=== PATIENT | female | born 1970 | race Two or more races ===

== ENCOUNTER → 2017-06-08 | Outpatient (CLI) | payer BC ==
--- NOTE | ~2017-06-08 | MY26 ---
[facility] A Service of [facility] / [facility] RADIOLOGY TEXT RESULTS PATIENT: VLADIMIR SMITH LOCATION: [facility] : 72 UNIT #: [id number] AGE: [address]: Guille Billings MD SEX: F ORDER DR: [id number] [place], [place] [address] [id number] O MR#: [id number] Acc #: [id number] NAME: VLADIMIR SMITH : 1970 SEX: F STUDY DATE/TIME: 06/08/2017 10:20 UNIT: [facility] ROOM: STUDY DESCRIPTION: MY [facility] DIAGNOSTIC W/ CAD BILAT Attending Physician: Guille Billings M.D. Referring Physician: Guille Billings M.D. Ordering Physician: Guille Billings M.D. Primary Care Physician: Guille Billings M.D. MEDICAL IMAGING REPORT This report is preliminary unless electronic signature is present EXAM Bilateral digital diagnostic mammogram INDICATIONS Palpable lump in the left breast noticed 4 days ago. PROCEDURE Bilateral CC and MLO views and a true lateral view of the left breast obtained on digital mammography unit. FDA-approved CAD device utilized. COMPARISON 05/08/2016 FINDINGS The breasts are dense. This lowers the sensitivity of mammography. No new dominant mass or suspicious calcification. Concurrently performed left breast ultrasound shows a complex cystic mass with somewhat thick, irregular cisneros in the left breast at the 2 o'clock position, 6 cm from the nipple. It measures 1.4 x 1.1 x 1 cm. IMPRESSION Complex cystic lesion in the left breast as detailed above. It has somewhat thick, irregular cisneros. Recommend ultrasound-guided biopsy. Patients over the age of 40 are entered into a reminder system with target due date for the next mammogram. A result letter will also be sent to the patient. BIRADS: 4 Suspicious Abnormality; Biopsy Should Be Considered [facility] RADIOLOGY TEXT RESULTS PATIENT: VLADIMIR SMITH LOCATION: [facility] : 72 UNIT #: [id number] AGE: [address]: Guille Billings MD SEX: F ORDER DR: Dictated by... Dakota Hager M.D. THIS IS AN ELECTRONICALLY VERIFIED REPORT Dakota Hager M.D. at 06/09/2017 7:12 AM EED/sary TD: 06/08/2017 20:33 JOB #: [id number] MEDICAL IMAGING REPORT Page 1 of 1 COPY
--- NOTE | ~2017-06-08 | US24 ---
[facility] A Service [facility] RADIOLOGY TEXT RESULTS PATIENT: VLADIMIR SMITH LOCATION: [facility] : 72 UNIT #: [id number] AGE: [address]: Guille Billings MD SEX: F ORDER DR: [id number] [place], [place] [address] [id number] O MR#: [id number] Acc #: [id number] NAME: VLADIMIR SMITH : 1970 SEX: F STUDY DATE/TIME: 06/08/2017 10:40 UNIT: [facility] ROOM: STUDY DESCRIPTION: US Breast Unilateral Attending Physician: Guille Billings M.D. Referring Physician: Guille Billings M.D. Ordering Physician: Guille Billings M.D. Primary Care Physician: Guille Billings M.D. MEDICAL IMAGING REPORT This report is preliminary unless electronic signature is present EXAM Left breast ultrasound INDICATIONS Palpable left breast mass. PROCEDURE Ann-scale and Doppler imaging left breast, 2 o'clock position. COMPARISON Concurrently performed diagnostic mammogram. FINDINGS/IMPRESSION Refer to separately dictated diagnostic mammogram for workup, findings and recommendations. Patients over the age of 40 are entered into a reminder system with target due date for the next mammogram. A result letter will also be sent to the patient. BIRADS: 4 Suspicious Abnormality; Biopsy Should Be Considered Dictated by... Dakota Hager M.D. THIS IS AN ELECTRONICALLY VERIFIED REPORT Dakota Hager M.D. at 06/09/2017 7:13 AM EED/psc TD: 06/08/2017 20:27 JOB #: [id number] [facility] A Service [facility] RADIOLOGY TEXT RESULTS PATIENT: VLADIMIR SMITH LOCATION: [facility] : 72 UNIT #: [id number] AGE: [address]: Guille Billings MD SEX: F ORDER DR: MEDICAL IMAGING REPORT Page 1 of 1 COPY
== END | disposition home or self-care (01) ==
LOC: CWCC 09:43
DX: N63 Unspecified lump in breast (principal); N60.02 Solitary cyst of left breast
CPT/HCPCS: 76641; G0204